=== PATIENT | male | born 1965 | race Caucasian/White ===

== ENCOUNTER 2020-03-14 19:09 | Inpatient (IN) | payer OTHER ==
[~2020-03-14] VITALS: Ht 152.4 cm; Wt 113.9 kg
--- NOTE | ~2020-03-14 | O ---
[facility] [place] [address] OPERATIVE REPORT Name: SANTO JORDAN Room #: 434-P ADM IN M.R.#: [id number] Admission: 03/15/20 Attend Phys: Lei Hammond MD Discharge: Date of : 65 Report #: [id number] THIS REPORT FOR: cc: SELENA - Dorota family physician/PCP SELENA - Dorota family physician/PCP Felipe Edwards MD ~ CC: [facility] physician/PCP Lei Hammond DATE OF SERVICE: 03/15/2020 PREOPERATIVE DIAGNOSIS: Incarcerated recurrent ventral incisional hernia. POSTOPERATIVE DIAGNOSIS: Incarcerated recurrent ventral incisional hernia. OPERATION: Laparoscopic repair of incarcerated recurrent ventral incisional hernia without mesh. SURGEON: Felipe Edwards MD. ANESTHESIA: General. ESTIMATED BLOOD LOSS: Minimal. SPECIMEN: None. DESCRIPTION OF PROCEDURE: After informed consent was obtained, the patient was brought to the operating room and placed supine. SCDs were placed and working, preoperative antibiotics were administered, general anesthesia was induced. The abdomen was prepped and draped in the usual sterile fashion. A 5 mm incision was made in the left upper quadrant. A 5 mm trocar was placed under direct vision. Pneumoperitoneum was established. An 8 mm port and a 5 mm port were placed in the left side of the abdomen under direct vision. I examined the right lower quadrant. He had incarcerated hernia with small bowel in a recurrent hernia defect. I was able to reduce the small bowel. The hernia defect measured less than 1 cm. I made an approximately 5 cm counter incision over the hernia sac. I was able to fully reduce the hernia contents. Given that the hernia was so small, I reapproximated with 3 interrupted 0 Prolene sutures. This brought the edges together nicely. I placed the laparoscope back into the abdomen and pneumoperitoneum was reestablished. I ran the small bowel to make sure there was no injury to the small bowel. The ports were then removed under direct vision. The skin was closed with 4-0 Monocryl. Incisions were sealed with sterile dressings. COMPLICATIONS: None. [address] [address] OPERATIVE REPORT Name: JULIANSANTO Room #: 434-P [facility] IN M.R.#: [id number] Admission: 03/15/20 Attend Phys: Lei Hammond MD Discharge: Date of : 65 Report #: [id number] DISPOSITION: The patient was taken to recovery in satisfactory condition. By: 1720 [id number] Felipe Edwards MD /nt
[~2020-03-14 19:09] MED LIST: NORCO 5-325 TA1 EACH PO
[2020-03-14 19:59] VITALS: BP 151/100
[2020-03-14 20:37] LABS: URINE BILIRUBIN NEGATIVE (Negative); URINE BLOOD NEGATIVE (Negative); URINE CLARITY CLEAR; URINE COLOR YELLOW; URINE GLUCOSE-RANDOM* NEGATIVE (Negative); URINE KETONES NEGATIVE (Negative); URINE LEUKOCYTES-REFLEX NEGATIVE (Negative); URINE NITRITE-REFLEX NEGATIVE (Negative); URINE PROTEIN (DIPSTICK) TRACE (Negative); URINE SPECIFIC GRAVITY >= 1.030 (1.005-1.035); URINE UROBILINOGEN 0.2 E.U./dl (0.2-1.0)
[2020-03-14 22:39] LABS: ABSOLUTE NEUTROPHILS 12.1 thou/uL (1.4-8.2); BASOPHILS 0.3 % (0.0-2.0); EOSINOPHILS 0.5 % (0.0-3.0); HEMATOCRIT 46.4 % (42.0-52.0); HEMOGLOBIN 15.3 gm/dL (14.0-18.0); LYMPHOCYTES 9.1 % (24.0-44.0); MCH 28.2 pg (26.0-34.0); MCV 85.5 fL (80.0-100.0); MONOCYTES 3.7 % (1.0-8.0); PLATELET COUNT 270 thou/uL (150-400); POLYS 86.4 % (36.0-66.0); RBC 5.43 mil/uL (4.50-6.00); RDW 16.3 % (10.5-14.5)
[2020-03-14 23:08] LABS: ALBUMIN 4.1 g/dL (3.4-5.0); CALCIUM 8.6 mg/dL (8.5-10.1); POTASSIUM 3.9 mmol/L (3.5-5.1); TOTAL BILIRUBIN 0.9 mg/dL (0.2-1.0); TOTAL PROTEIN 8.4 g/dL (6.4-8.2)
[2020-03-15 02:55] VITALS: BP 151/100
[2020-03-15 04:18] VITALS: BP 151/100
[2020-03-15 04:21] VITALS: BP 154/92
[2020-03-15 07:00] VITALS: BP 150/89
--- NOTE | 2020-03-15 07:35 | NUR ---
0400 PT TO FLOOR FROM ER, ADMISSION ASSESSMENT COMPLETED FALL PRECAUTIONS IN PLACE
--- NOTE | 2020-03-15 08:11 | NUR ---
PT'S COVID 19 DONE IN LEFT NARE AT 0800 TAKEN TO LAB. PT TOLERATED WITH SMALL DISCOMFORT.
--- NOTE | 2020-03-15 08:19 | NUR ---
ASSUMED CARE OF PATIENT PT ALERT XS4 STATES NO PAIN. PT IS NPO. COVID 19 DONE AND TAKEN TO LAB.
--- NOTE | 2020-03-15 14:22 | NUR ---
COVID 19 TEST RESULT NEGATIVE
[2020-03-15 19:52] VITALS: BP 144/82
--- NOTE | 2020-03-16 03:52 | NUR ---
ASSUMED PT CARE AT 1900. PT IS A&OX4. REFUSES PAIN MEDICATION, RATES PAIN 2. 1 LAP SITE WAS LEAKING, COVERED WITH DRESSING. FLUIDS INFUSING PER ORDER. UP TO THE TOILET WITH STANDBY, PT IS STEADY ON FEET. PT IS CURRENTLY SNORING IN BED, WILL CONTINUE TO MONITOR.
[2020-03-16 04:42] VITALS: BP 140/92
[2020-03-16 05:36] LABS: HEMATOCRIT 41.8 % (42.0-52.0); HEMOGLOBIN 13.6 gm/dL (14.0-18.0); MCH 27.9 pg (26.0-34.0); MCHC 32.7 g/dL (28.0-37.0); MCV 85.4 fL (80.0-100.0); RBC 4.89 mil/uL (4.50-6.00); RDW 16.6 % (10.5-14.5); WBC 12.7 thou/uL (4.0-11.0)
[2020-03-16 06:04] LABS: CREATININE 0.9 mg/dL (0.7-1.3); POTASSIUM 3.9 mmol/L (3.5-5.1)
[2020-03-16 07:30] VITALS: BP 145/79
[2020-03-16] MEDS ORDERED: TYLENOL325 M1 PO (10:23)
[2020-03-16 10:40] VITALS: BP 145/79
== END 2020-03-16 14:17 | disposition home or self-care (01) | DRG 354 ==
LOC: ER 19:09 → 4S 03-15 00:45 → EROBS 03-15 00:45 → 4S 03-15 04:03
PROVIDERS: Nurse Practitioner Family; Student in an Organized Health Care Education/Training Program; Surgery; ADMIT Internal Medicine; ATTEND Internal Medicine
PROC: 0WQF4ZZ Repair Abdominal Wall, Percutaneous Endoscopic Approach (ICD-10-PCS; principal; 2020-03-15)
PROC: 05HY33Z Insertion of Infusion Device into Upper Vein, Percutaneous Approach (ICD-10-PCS; principal; 2020-03-15)
DX: K43.2 Incisional hernia without obstruction or gangrene (principal); Z68.42 Body mass index [BMI] 45.0-49.9, adult; E66.01 Morbid (severe) obesity due to excess calories; Z20.828 Contact with and (suspected) exposure to other viral communicable diseases; Z90.49 Acquired absence of other specified parts of digestive tract; Z88.0 Allergy status to penicillin; Z91.010 Allergy to peanuts; Z79.899 Other long term (current) drug therapy
CPT/HCPCS: 10195; 50010

== ENCOUNTER 2020-03-22 13:55 | Emergency (ER) | payer OTHER ==
[~2020-03-22] VITALS: Ht 172.7 cm; Wt 69.8 kg
[~2020-03-22 13:55] MED LIST changes: +TYLENOL325 M1 PO
[2020-03-22] MEDS ORDERED: ENOXAPARIN100 MG/11 SUBQ (17:40)
[2020-03-22] MEDS ORDERED: ELIQUIS5 M1 PO (17:40)
[2020-03-22 18:10] VITALS: BP 143/81
== END 2020-03-22 18:10 | disposition home or self-care (01) ==
LOC: ER 13:55
DX: I82.621 Acute embolism and thrombosis of deep veins of right upper extremity (principal); Z90.49 Acquired absence of other specified parts of digestive tract; Z79.899 Other long term (current) drug therapy; Z91.010 Allergy to peanuts; Z88.0 Allergy status to penicillin

== ENCOUNTER 2020-07-25 08:00 | Inpatient (IN) | payer MEDICAID ==
[~2020-07-25] VITALS: Ht 172.7 cm; Wt 122.5 kg
[~2020-07-25 08:00] MED LIST changes: +ELIQUIS5 M1 PO; +ENOXAPARIN100 MG/11 SUBQ
[2020-07-25 08:04] VITALS: BP 153/96
[2020-07-25] MEDS ORDERED: ALEVE220 M1 PO (08:11)
[2020-07-25 08:31] LABS: URINE BILIRUBIN NEGATIVE (Negative); URINE BLOOD TRACE (Negative); URINE CLARITY CLEAR; URINE COLOR YELLOW; URINE GLUCOSE-RANDOM* NEGATIVE (Negative); URINE KETONES NEGATIVE (Negative); URINE LEUKOCYTES-REFLEX NEGATIVE (Negative); URINE NITRITE-REFLEX NEGATIVE (Negative); URINE PROTEIN (DIPSTICK) 2+ (Negative); URINE SPECIFIC GRAVITY >= 1.030 (1.005-1.035)
[2020-07-25 08:51] LABS: CASTS None Seen /LPF (None Seen); CRYSTALS None Seen /LPF (None Seen); MUCUS 4-6 Moderate strn/LPF (None Seen); SQUAMOUS 0-3 Few /LPF (0-3)
[2020-07-25 08:52] LABS: BACTERIA-REFLEX 1-9 Few /HPF (None Seen); URINE RBC 0-2 Rare /HPF (0-2); URINE WBC-REFLEX None Seen /HPF (0-5)
[2020-07-25 08:57] LABS: ABSOLUTE NEUTROPHILS 10.8 thou/uL (1.4-8.2); BASOPHILS 0.1 % (0.0-2.0); EOSINOPHILS 0.3 % (0.0-3.0); HEMATOCRIT 41.8 % (42.0-52.0); HEMOGLOBIN 13.8 gm/dL (14.0-18.0); MCHC 33.1 g/dL (28.0-37.0); MCV 84.6 fL (80.0-100.0); PLATELET COUNT 287 thou/uL (150-400); POLYS 90.6 % (36.0-66.0); RBC 4.94 mil/uL (4.50-6.00); RDW 16.1 % (10.5-14.5); WBC 11.9 thou/uL (4.0-11.0)
[2020-07-25 09:24] LABS: ALBUMIN 4.5 g/dL (3.4-5.0); CREATININE 1.1 mg/dL (0.7-1.3); POTASSIUM 3.9 mmol/L (3.5-5.1); TOTAL BILIRUBIN 0.9 mg/dL (0.2-1.0); TOTAL PROTEIN 8.4 g/dL (6.4-8.2)
[2020-07-25 09:27] LABS: CALCIUM 9.3 mg/dL (8.5-10.1)
[2020-07-25 18:05] VITALS: BP 135/74
[2020-07-25 18:07] VITALS: BP 137/81
[2020-07-25 19:56] VITALS: BP 156/92
[2020-07-26 07:26] VITALS: BP 160/74
[2020-07-26 07:51] LABS: HEMATOCRIT 40.5 % (42.0-52.0); HEMOGLOBIN 13.3 gm/dL (14.0-18.0); MCH 27.9 pg (26.0-34.0); MCHC 32.8 g/dL (28.0-37.0); MCV 85.2 fL (80.0-100.0); RBC 4.76 mil/uL (4.50-6.00); RDW 16.4 % (10.5-14.5)
[2020-07-26 08:14] LABS: CALCIUM 8.2 mg/dL (8.5-10.1); CREATININE 1.2 mg/dL (0.7-1.3); POTASSIUM 3.3 mmol/L (3.5-5.1)
[2020-07-26 20:01] VITALS: BP 153/91
[2020-07-27 04:28] VITALS: BP 149/71
[2020-07-27 05:48] LABS: HEMATOCRIT 38.9 % (42.0-52.0); HEMOGLOBIN 12.7 gm/dL (14.0-18.0); MCHC 32.7 g/dL (28.0-37.0); MCV 85.8 fL (80.0-100.0); RBC 4.54 mil/uL (4.50-6.00); RDW 16.5 % (10.5-14.5)
[2020-07-27 05:55] LABS: CALCIUM 8.6 mg/dL (8.5-10.1); CREATININE 0.8 mg/dL (0.7-1.3); POTASSIUM 3.5 mmol/L (3.5-5.1)
[2020-07-27 07:16] VITALS: BP 169/79
[2020-07-27 15:37] VITALS: BP 181/96
[2020-07-27 19:30] VITALS: BP 164/96
[2020-07-28 07:12] VITALS: BP 167/98
[2020-07-28 16:14] VITALS: BP 151/78
[2020-07-28 20:00] VITALS: BP 178/81
[2020-07-29] VITALS: BP 157/82
[2020-07-29 08:59] VITALS: BP 167/89
[2020-07-29 09:49] LABS: HEMATOCRIT 42.9 % (42.0-52.0); HEMOGLOBIN 14.2 gm/dL (14.0-18.0); MCH 28.3 pg (26.0-34.0); MCHC 33.2 g/dL (28.0-37.0); MCV 85.3 fL (80.0-100.0); RBC 5.03 mil/uL (4.50-6.00); RDW 16.3 % (10.5-14.5); WBC 8.4 thou/uL (4.0-11.0)
[2020-07-29 09:59] LABS: CALCIUM 9.2 mg/dL (8.5-10.1); CREATININE 0.9 mg/dL (0.7-1.3); POTASSIUM 3.4 mmol/L (3.5-5.1)
[2020-07-29 15:57] VITALS: BP 145/83
[2020-07-29 19:30] VITALS: BP 165/72
[2020-07-30 17:11] VITALS: BP 134/72
[2020-07-30 19:40] VITALS: BP 139/89
[2020-07-30 21:04] VITALS: BP 128/83; BP 132/81
[2020-07-30 21:05] VITALS: BP 136/86
[2020-07-30 23:35] VITALS: BP 134/86
[2020-07-31 04:12] VITALS: BP 137/87
[2020-07-31 15:50] VITALS: BP 130/81
[2020-07-31 19:09] VITALS: BP 132/82
[2020-08-01 04:35] VITALS: BP 125/85
[2020-08-01 08:00] VITALS: BP 133/83
[2020-08-01 17:00] VITALS: BP 154/90
[2020-08-01 20:55] VITALS: BP 151/92
[2020-08-02 05:06] VITALS: BP 151/94
[2020-08-02 08:01] VITALS: BP 152/82
[2020-08-02 15:41] VITALS: BP 149/86
[2020-08-02] MEDS ORDERED: HYDROCODON-ACE1 EAC7 PO (16:44)
[2020-08-02 19:53] VITALS: BP 144/91
[2020-08-03 04:15] VITALS: BP 121/90
[2020-08-03 07:49] VITALS: BP 136/95
[2020-08-03 12:24] VITALS: BP 136/95
== END 2020-08-03 14:21 | disposition home or self-care (01) | DRG 330 ==
LOC: ER 08:00 → EROBS 11:28 → 4W 11:28 → 4S 07-30 18:43
PROVIDERS: Emergency Medicine; ADMIT Hospitalist; ATTEND Hospitalist
PROC: 0D9670Z Drainage of Stomach with Drainage Device, Via Natural or Artificial Opening (ICD-10-PCS; principal; 2020-07-25)
PROC: 0DQ84ZZ Repair Small Intestine, Percutaneous Endoscopic Approach (ICD-10-PCS; 2020-07-30)
DX: K43.0 Incisional hernia with obstruction, without gangrene (principal); K56.7 Ileus, unspecified; E86.0 Dehydration; I10 Essential (primary) hypertension; Z20.828 Contact with and (suspected) exposure to other viral communicable diseases; Z90.49 Acquired absence of other specified parts of digestive tract; Z88.0 Allergy status to penicillin; Z91.010 Allergy to peanuts; Z79.899 Other long term (current) drug therapy
CPT/HCPCS: 10040; 10195; 50010; 50101; 50386; 50555; 51489; 52265; 52266; 53307; 54022; 56462; 56524; 56526; 56528; 57092; 62110; 62900; 70005